=== PATIENT | male | born 1995 | race Caucasian/White ===

== ENCOUNTER 2022-08-03 14:30 | Inpatient (IN) | payer OTHER ==
[2022-08-03 14:51] VITALS: BMI 29.0
[2022-08-03] MEDS ORDERED: MAG HYDROX/AL HYDROX/SIMETH 30 ML UNIT-DOSE CUP PO PRN (17:32)
[2022-08-03] MEDS ORDERED: MAGNESIUM HYDROX 2400MG/30ML ORAL SUSPENSION 30 ML CUP PO PRN (17:32)
[2022-08-03] MEDS ORDERED: NALOXONE HCL 0.4 MG/ML VIAL IM PRN (17:32)
[2022-08-03] MEDS ORDERED: BENZOCAINE/MENTHOL (CHLORASEPTIC ) LOZENGE MM PRN (17:32)
[2022-08-03] MEDS ORDERED: POLYETHYLENE GLYCOL (HEALTHYLAX) 3350 17 GM PACKET PO PRN (17:32)
[2022-08-03] MEDS ORDERED: NICOTINE POLACRILEX 2 MG GUM BUC PRN (17:32)
[2022-08-03] MEDS ORDERED: ONDANSETRON *ODT* 4 MG TABLET SL PRN (17:32)
[2022-08-03] MEDS ORDERED: BISMUTH SUBSALICYLATE 524 MG/30 ML PO PRN (17:32)
[2022-08-03] MEDS ORDERED: ACETAMINOPHEN 325 MG TABLET (FP) PO PRN (17:32)
[2022-08-03] MEDS ORDERED: P-EPHED 60MG/TRIPROLIDI 2.5MG TABLET PO PRN (17:32)
[2022-08-03] MEDS ORDERED: LOPERAMIDE HCL 2 MG CAPSULE PO PRN (17:32)
[2022-08-03] MEDS ORDERED: guaiFENesin 600 MG TABLET.ER (FP) PO PRN (17:32)
[2022-08-03] MEDS ORDERED: BENZONATATE 200 MG CAPSULE PO PRN (17:32)
[2022-08-03] MEDS ORDERED: DICYCLOMINE HCL 10 MG CAPSULE PO PRN (17:32)
[2022-08-03] MEDS ORDERED: NALOXONE HCL (KLOXXADO) 8 MG SPRAY NS PRN (17:32)
[2022-08-03] MEDS ORDERED: IBUPROFEN 400 MG TABLET (FP) PO PRN (17:32)
[2022-08-03] MEDS ORDERED: IBUPROFEN 600 MG TABLET (FP) PO PRN (17:32)
[2022-08-03] MEDS: hydrOXYzine PAMOATE 25 MG CAPSULE (FP) PO PRN (22:24)
[2022-08-03] MEDS: MELATONIN 5 MG TABLETS PO PRN (22:24)
[2022-08-03] MEDS: THIAMINE HCL 100 MG TABLET (FP) PO SCH (22:24)
[2022-08-04] MEDS ORDERED: diazePAM 5 MG TABLET PO PRN (09:27)
[2022-08-04] MEDS: PRENATAL VITAMINS W/ FOLIC ACID TABLET (FP) PO SCH (10:32)
[2022-08-04] MEDS: diazePAM 5 MG TABLET PO SCH ×3 (10:34→22:26)
[2022-08-04] MEDS: hydrOXYzine PAMOATE 25 MG CAPSULE (FP) PO PRN (17:28)
[2022-08-04] MEDS: MELATONIN 5 MG TABLETS PO PRN (22:26)
[2022-08-04] MEDS: THIAMINE HCL 100 MG TABLET (FP) PO SCH (22:26)
[2022-08-05] MEDS: diazePAM 5 MG TABLET PO SCH ×4 (05:25→22:17)
[2022-08-05 10:01] LABS: POTASSIUM 3.9 mmol/L (3.5-5.1)
[2022-08-05 10:03] LABS: HEMATOCRIT 44.5 % (35.4-49); HEMOGLOBIN 15.8 GM/dL (11.7-16.9); MCH 32.6 pg (25.7-33.7); MCHC 35.5 g/dl (32.0-35.9); MEAN CELL VOLUME 91.9 fl (80-96); MEAN PLT VOLUME 9.2 fl (7.5-11.1); PLATELET COUNT 234 10^3/uL (134-434); RBC 4.85 M/mm3 (4.00-5.60); RDW 12.9 % (11.9-15.9); WHITE BLOOD COUNT 5.8 K/mm3 (4.0-10.0)
[2022-08-05 10:26] LABS: CALCIUM 9.3 mg/dL (8.5-10.1)
[2022-08-05 10:27] LABS: ALBUMIN 3.5 g/dl (3.4-5.0)
[2022-08-05 10:30] LABS: CREATININE 0.8 mg/dL (0.55-1.3)
[2022-08-05] MEDS: hydrOXYzine PAMOATE 25 MG CAPSULE (FP) PO PRN (10:31)
[2022-08-05] MEDS: METHOCARBAMOL 500 MG TABLET PO PRN (10:31)
[2022-08-05] MEDS: PRENATAL VITAMINS W/ FOLIC ACID TABLET (FP) PO SCH (10:31)
[2022-08-05 10:32] LABS: BILIRUBIN,TOTAL 0.5 mg/dL (0.2-1); TOT PROT 7.2 g/dl (6.4-8.2)
[2022-08-05] MEDS: THIAMINE HCL 100 MG TABLET (FP) PO SCH (22:17)
[2022-08-05] MEDS: MELATONIN 5 MG TABLETS PO PRN (22:17)
[2022-08-06] MEDS: diazePAM 5 MG TABLET PO SCH ×3 (05:49→22:08)
[2022-08-06] MEDS: PRENATAL VITAMINS W/ FOLIC ACID TABLET (FP) PO SCH (10:19)
[2022-08-06] MEDS: METHOCARBAMOL 500 MG TABLET PO PRN (10:19)
[2022-08-06] MEDS: hydrOXYzine PAMOATE 25 MG CAPSULE (FP) PO PRN (10:19)
[2022-08-06] MEDS: THIAMINE HCL 100 MG TABLET (FP) PO SCH (22:08)
[2022-08-06] MEDS: MELATONIN 5 MG TABLETS PO PRN (22:08)
[2022-08-07] MEDS: diazePAM 5 MG TABLET PO SCH ×2 (05:52→17:27)
[2022-08-07] MEDS: METHOCARBAMOL 500 MG TABLET PO PRN (10:28)
[2022-08-07] MEDS: hydrOXYzine PAMOATE 25 MG CAPSULE (FP) PO PRN (10:28)
[2022-08-07] MEDS: PRENATAL VITAMINS W/ FOLIC ACID TABLET (FP) PO SCH (10:28)
[2022-08-07 17:18] VITALS: RESP 18
[2022-08-07] MEDS: MELATONIN 5 MG TABLETS PO PRN (22:22)
[2022-08-07] MEDS: THIAMINE HCL 100 MG TABLET (FP) PO SCH (22:22)
[2022-08-08] MEDS ORDERED: diazePAM 5 MG TABLET PO ONE (06:00)
[2022-08-08] MEDS: PRENATAL VITAMINS W/ FOLIC ACID TABLET (FP) PO SCH (10:13)
[2022-08-08 17:07] VITALS: BP 123/77; PULSE 90; TEMP 97.7
== END 2022-08-08 18:20 | disposition other institution (70) | DRG 774 ==
LOC: YASAS 14:30 → Y6N 18:42 → UNDOADMIN 18:42 → Y6N 08-08 01:45
PROVIDERS: ADMIT Allergy & Immunology; ATTEND Surgery
PROC: HZ2ZZZZ Detoxification Services for Substance Abuse Treatment (ICD-10-PCS; principal; 2022-08-03)
DX: F10.20 Alcohol dependence, uncomplicated (principal); F14.20 Cocaine dependence, uncomplicated; F13.20 Sedative, hypnotic or anxiolytic dependence, uncomplicated; F12.20 Cannabis dependence, uncomplicated; F17.290 Nicotine dependence, other tobacco product, uncomplicated; F19.280 Other psychoactive substance dependence with psychoactive substance-induced anxiety disorder; F19.282 Other psychoactive substance dependence with psychoactive substance-induced sleep disorder; F33.1 Major depressive disorder, recurrent, moderate; R76.11 Nonspecific reaction to tuberculin skin test without active tuberculosis
CPT/HCPCS: 36415; 80053; 85027; 86780; C9803-CS; Q0162; U0003; U0005

== ENCOUNTER 2022-08-08 18:38 | Inpatient (IN) | payer OTHER ==
[~2022-08-08 18:38] MED LIST: ACETAMINOPHEN 325 MG TABLET (FP) PO PRN; AMMONIUM LACTATE 12% LOTION 225 GM BOTTLE TP PRN; BENZOCAINE/MENTHOL (CHLORASEPTIC ) LOZENGE MM PRN; BENZONATATE 200 MG CAPSULE PO PRN; COLLOIDAL OATMEAL 1 BAR EACH TP PRN; IBUPROFEN 400 MG TABLET (FP) PO PRN; IBUPROFEN 600 MG TABLET (FP) PO PRN; LOPERAMIDE HCL 2 MG CAPSULE PO PRN; MAG HYDROX/AL HYDROX/SIMETH 30 ML UNIT-DOSE CUP PO PRN; MAGNESIUM HYDROX 2400MG/30ML ORAL SUSPENSION 30 ML CUP PO PRN; NICOTINE POLACRILEX 2 MG GUM BUC PRN; POLYETHYLENE GLYCOL (HEALTHYLAX) 3350 17 GM PACKET PO PRN; guaiFENesin 600 MG TABLET.ER (FP) PO PRN
[2022-08-08] MEDS: METHOCARBAMOL 500 MG TABLET PO PRN (21:20)
[2022-08-08] MEDS: MELATONIN 5 MG TABLETS PO SCH (21:20)
[2022-08-08] MEDS: hydrOXYzine PAMOATE 25 MG CAPSULE (FP) PO PRN (21:20)
[2022-08-08] MEDS: THIAMINE HCL 100 MG TABLET (FP) PO SCH (21:21)
[2022-08-09] MEDS: PRENATAL VITAMINS W/ FOLIC ACID TABLET (FP) PO SCH (09:52)
[2022-08-09] MEDS: busPIRone HCL 5 MG TABLET PO SCH ×2 (13:34→21:04)
[2022-08-09] MEDS: THIAMINE HCL 100 MG TABLET (FP) PO SCH (21:04)
[2022-08-09] MEDS: MELATONIN 5 MG TABLETS PO SCH (21:04)
[2022-08-09] MEDS: hydrOXYzine PAMOATE 25 MG CAPSULE (FP) PO PRN (21:05)
[2022-08-09] MEDS: METHOCARBAMOL 500 MG TABLET PO PRN (21:05)
[2022-08-10] MEDS: busPIRone HCL 5 MG TABLET PO SCH ×3 (06:19→21:06)
[2022-08-10] MEDS: PRENATAL VITAMINS W/ FOLIC ACID TABLET (FP) PO SCH (09:47)
[2022-08-10] MEDS: hydrOXYzine PAMOATE 25 MG CAPSULE (FP) PO PRN (21:05)
[2022-08-10] MEDS: MELATONIN 5 MG TABLETS PO SCH (21:05)
[2022-08-10] MEDS: THIAMINE HCL 100 MG TABLET (FP) PO SCH (21:05)
[2022-08-10] MEDS: METHOCARBAMOL 500 MG TABLET PO PRN (21:06)
[2022-08-11] MEDS: busPIRone HCL 5 MG TABLET PO SCH ×3 (06:14→21:13)
[2022-08-11] MEDS: PRENATAL VITAMINS W/ FOLIC ACID TABLET (FP) PO SCH (09:44)
[2022-08-11] MEDS: METHOCARBAMOL 500 MG TABLET PO PRN (21:13)
[2022-08-11] MEDS: hydrOXYzine PAMOATE 25 MG CAPSULE (FP) PO PRN (21:13)
[2022-08-11] MEDS: MELATONIN 5 MG TABLETS PO SCH (21:13)
[2022-08-11] MEDS: THIAMINE HCL 100 MG TABLET (FP) PO SCH (21:13)
[2022-08-12] MEDS: busPIRone HCL 5 MG TABLET PO SCH ×3 (06:28→21:09)
[2022-08-12] MEDS: PRENATAL VITAMINS W/ FOLIC ACID TABLET (FP) PO SCH (09:20)
[2022-08-12] MEDS: THIAMINE HCL 100 MG TABLET (FP) PO SCH (21:06)
[2022-08-12] MEDS: METHOCARBAMOL 500 MG TABLET PO PRN (21:06)
[2022-08-12] MEDS: hydrOXYzine PAMOATE 25 MG CAPSULE (FP) PO PRN (21:06)
[2022-08-12] MEDS: MELATONIN 5 MG TABLETS PO SCH (21:07)
[2022-08-13] MEDS: busPIRone HCL 5 MG TABLET PO SCH ×3 (06:16→21:24)
[2022-08-13] MEDS: PRENATAL VITAMINS W/ FOLIC ACID TABLET (FP) PO SCH (09:20)
[2022-08-13] MEDS: THIAMINE HCL 100 MG TABLET (FP) PO SCH (21:24)
[2022-08-13] MEDS: METHOCARBAMOL 500 MG TABLET PO PRN (21:24)
[2022-08-13] MEDS: MELATONIN 5 MG TABLETS PO SCH (21:24)
[2022-08-13] MEDS: hydrOXYzine PAMOATE 25 MG CAPSULE (FP) PO PRN (21:24)
[2022-08-14] MEDS: busPIRone HCL 5 MG TABLET PO SCH ×3 (06:05→21:05)
[2022-08-14] MEDS: PRENATAL VITAMINS W/ FOLIC ACID TABLET (FP) PO SCH (09:52)
[2022-08-14] MEDS: MELATONIN 5 MG TABLETS PO SCH (21:05)
[2022-08-14] MEDS: THIAMINE HCL 100 MG TABLET (FP) PO SCH (21:05)
[2022-08-15] MEDS: busPIRone HCL 5 MG TABLET PO SCH ×3 (06:22→23:02)
[2022-08-15] MEDS: PRENATAL VITAMINS W/ FOLIC ACID TABLET (FP) PO SCH (09:29)
[2022-08-15] MEDS: THIAMINE HCL 100 MG TABLET (FP) PO SCH (23:02)
[2022-08-15] MEDS: hydrOXYzine PAMOATE 50 MG CAPSULE (FP) PO PRN (23:02)
[2022-08-15] MEDS: MIRTAZAPINE 15 MG TABLET (FP) PO SCH (23:02)
[2022-08-16] MEDS: busPIRone HCL 5 MG TABLET PO SCH ×3 (06:14→21:21)
[2022-08-16] MEDS: PRENATAL VITAMINS W/ FOLIC ACID TABLET (FP) PO SCH (09:53)
[2022-08-16] MEDS: MIRTAZAPINE 15 MG TABLET (FP) PO SCH (21:21)
[2022-08-16] MEDS: THIAMINE HCL 100 MG TABLET (FP) PO SCH (21:21)
[2022-08-16] MEDS: hydrOXYzine PAMOATE 50 MG CAPSULE (FP) PO PRN (21:21)
[2022-08-17] MEDS: busPIRone HCL 5 MG TABLET PO SCH ×3 (06:05→21:15)
[2022-08-17] MEDS: PRENATAL VITAMINS W/ FOLIC ACID TABLET (FP) PO SCH (09:19)
[2022-08-17] MEDS: THIAMINE HCL 100 MG TABLET (FP) PO SCH (21:15)
[2022-08-17] MEDS: hydrOXYzine PAMOATE 50 MG CAPSULE (FP) PO PRN (21:15)
[2022-08-17] MEDS: MIRTAZAPINE 15 MG TABLET (FP) PO SCH (21:15)
[2022-08-18] MEDS: busPIRone HCL 5 MG TABLET PO SCH ×3 (06:47→21:24)
[2022-08-18] MEDS: PRENATAL VITAMINS W/ FOLIC ACID TABLET (FP) PO SCH (09:40)
[2022-08-18] MEDS: THIAMINE HCL 100 MG TABLET (FP) PO SCH (21:24)
[2022-08-18] MEDS: hydrOXYzine PAMOATE 50 MG CAPSULE (FP) PO PRN (21:24)
[2022-08-18] MEDS: MIRTAZAPINE 15 MG TABLET (FP) PO SCH (21:25)
[2022-08-19] MEDS: busPIRone HCL 5 MG TABLET PO SCH ×3 (06:40→21:15)
[2022-08-19] MEDS: PRENATAL VITAMINS W/ FOLIC ACID TABLET (FP) PO SCH (09:54)
[2022-08-19] MEDS: THIAMINE HCL 100 MG TABLET (FP) PO SCH (21:15)
[2022-08-19] MEDS: MIRTAZAPINE 15 MG TABLET (FP) PO SCH (21:15)
[2022-08-19] MEDS: hydrOXYzine PAMOATE 50 MG CAPSULE (FP) PO PRN (21:15)
[2022-08-20] MEDS: busPIRone HCL 5 MG TABLET PO SCH ×3 (06:23→21:44)
[2022-08-20] MEDS: PRENATAL VITAMINS W/ FOLIC ACID TABLET (FP) PO SCH (09:42)
[2022-08-20] MEDS: THIAMINE HCL 100 MG TABLET (FP) PO SCH (21:44)
[2022-08-20] MEDS: MIRTAZAPINE 15 MG TABLET (FP) PO SCH (21:44)
[2022-08-20] MEDS: hydrOXYzine PAMOATE 50 MG CAPSULE (FP) PO PRN (21:44)
[2022-08-21] MEDS: busPIRone HCL 5 MG TABLET PO SCH ×3 (06:12→21:04)
[2022-08-21] MEDS: PRENATAL VITAMINS W/ FOLIC ACID TABLET (FP) PO SCH (09:43)
[2022-08-21] MEDS: THIAMINE HCL 100 MG TABLET (FP) PO SCH (21:04)
[2022-08-21] MEDS: hydrOXYzine PAMOATE 50 MG CAPSULE (FP) PO PRN (21:04)
[2022-08-21] MEDS: MIRTAZAPINE 15 MG TABLET (FP) PO SCH (21:04)
[2022-08-22] MEDS: busPIRone HCL 5 MG TABLET PO SCH (06:08)
[2022-08-22 07:04] VITALS: BP 102/71; PULSE 75; RESP 18; TEMP 97.7
[2022-08-22] MEDS: PRENATAL VITAMINS W/ FOLIC ACID TABLET (FP) PO SCH (09:05)
== END 2022-08-22 09:10 | disposition home or self-care (01) | DRG 772 ==
LOC: YASAS 18:38 → Y3E 18:40
PROVIDERS: ADMIT Allergy & Immunology; ATTEND Psychiatry & Neurology Pain Medicine
PROC: HZ42ZZZ Group Counseling for Substance Abuse Treatment, Cognitive-Behavioral (ICD-10-PCS; principal; 2022-08-08)
DX: F10.20 Alcohol dependence, uncomplicated (principal); F14.20 Cocaine dependence, uncomplicated; F13.20 Sedative, hypnotic or anxiolytic dependence, uncomplicated; F12.20 Cannabis dependence, uncomplicated; F17.290 Nicotine dependence, other tobacco product, uncomplicated; F19.282 Other psychoactive substance dependence with psychoactive substance-induced sleep disorder; F19.280 Other psychoactive substance dependence with psychoactive substance-induced anxiety disorder; F19.24 Other psychoactive substance dependence with psychoactive substance-induced mood disorder; F33.1 Major depressive disorder, recurrent, moderate
CPT/HCPCS: 71046-TC-FY

== ENCOUNTER 2022-12-07 20:09 | Inpatient (IN) | payer OTHER ==
[2022-12-07 21:38] VITALS: BMI 32.1
[2022-12-07] MEDS ORDERED: chlordiazePOXIDE HCL 25 MG CAPSULE PO PRN (22:18)
[2022-12-07] MEDS ORDERED: LOPERAMIDE HCL 2 MG CAPSULE PO PRN (22:25)
[2022-12-07] MEDS ORDERED: NICOTINE POLACRILEX 2 MG GUM BUC PRN (22:25)
[2022-12-07] MEDS ORDERED: BISMUTH SUBSALICYLATE 524 MG/30 ML PO PRN (22:25)
[2022-12-07] MEDS ORDERED: IBUPROFEN 400 MG TABLET (FP) PO PRN (22:25)
[2022-12-07] MEDS ORDERED: POLYETHYLENE GLYCOL (HEALTHYLAX) 3350 17 GM PACKET PO PRN (22:25)
[2022-12-07] MEDS ORDERED: ONDANSETRON *ODT* 4 MG TABLET SL PRN (22:25)
[2022-12-07] MEDS ORDERED: BENZONATATE 200 MG CAPSULE PO PRN (22:25)
[2022-12-07] MEDS ORDERED: P-EPHED 60MG/TRIPROLIDI 2.5MG TABLET PO PRN (22:25)
[2022-12-07] MEDS ORDERED: METHOCARBAMOL 500 MG TABLET PO PRN (22:25)
[2022-12-07] MEDS ORDERED: MAGNESIUM HYDROX 2400MG/30ML ORAL SUSPENSION 30 ML CUP PO PRN (22:25)
[2022-12-07] MEDS ORDERED: DICYCLOMINE HCL 10 MG CAPSULE PO PRN (22:25)
[2022-12-07] MEDS ORDERED: MAG HYDROX/AL HYDROX/SIMETH 30 ML UNIT-DOSE CUP PO PRN (22:25)
[2022-12-07] MEDS ORDERED: guaiFENesin 600 MG TABLET.ER (FP) PO PRN (22:25)
[2022-12-07] MEDS ORDERED: ACETAMINOPHEN 325 MG TABLET (FP) PO PRN (22:25)
[2022-12-07] MEDS ORDERED: BENZOCAINE/MENTHOL (CHLORASEPTIC ) LOZENGE MM PRN (22:25)
[2022-12-07] MEDS ORDERED: levETIRAcetam 500 MG TABLET (FP) PO ONE (22:43)
[2022-12-07] MEDS ORDERED: chlordiazePOXIDE HCL 25 MG CAPSULE ONE (22:43)
[2022-12-07] MEDS: chlordiazePOXIDE HCL 25 MG CAPSULE PO SCH (22:58)
[2022-12-07] MEDS: levETIRAcetam 500 MG TABLET (FP) PO SCH (22:58)
[2022-12-08] MEDS: chlordiazePOXIDE HCL 25 MG CAPSULE PO SCH ×4 (05:37→22:21)
[2022-12-08] MEDS: hydrOXYzine PAMOATE 25 MG CAPSULE (FP) PO PRN (10:39)
[2022-12-08 10:41] LABS: POTASSIUM 3.5 mmol/L (3.5-5.1)
[2022-12-08] MEDS: levETIRAcetam 500 MG TABLET (FP) PO SCH ×2 (10:41→22:20)
[2022-12-08] MEDS: PRENATAL VITAMINS W/ FOLIC ACID TABLET (FP) PO SCH (10:41)
[2022-12-08 10:47] LABS: HEMATOCRIT 41.2 % (35.4-49); MCH 31.5 pg (25.7-33.7); MEAN CELL VOLUME 92.8 fl (80-96); MEAN PLT VOLUME 8.5 fl (7.5-11.1); PLATELET COUNT 260 10^3/uL (134-434); RBC 4.44 M/mm3 (4.00-5.60); RDW 13.3 % (11.9-15.9); WHITE BLOOD COUNT 3.9 K/mm3 (4.0-10.0)
[2022-12-08 10:50] LABS: CALCIUM 8.2 mg/dL (8.5-10.1)
[2022-12-08 10:51] LABS: ALBUMIN 3.6 g/dl (3.4-5.0)
[2022-12-08 10:54] LABS: CREATININE 0.9 mg/dL (0.55-1.3)
[2022-12-08 10:55] LABS: BILIRUBIN,TOTAL 0.4 mg/dL (0.2-1)
[2022-12-08] MEDS: MIRTAZAPINE 15 MG TABLET (FP) PO SCH (22:20)
[2022-12-08] MEDS: THIAMINE HCL 100 MG TABLET (FP) PO SCH (22:20)
[2022-12-08] MEDS: MELATONIN 5 MG TABLETS PO SCH (22:21)
[2022-12-08] MEDS: busPIRone HCL 10 MG TABLET (FP) PO SCH (22:21)
[2022-12-09] MEDS: chlordiazePOXIDE HCL 25 MG CAPSULE PO SCH ×4 (05:23→22:07)
[2022-12-09] MEDS: busPIRone HCL 10 MG TABLET (FP) PO SCH ×3 (05:23→22:08)
[2022-12-09] MEDS: hydrOXYzine PAMOATE 25 MG CAPSULE (FP) PO PRN ×2 (05:24→13:21)
[2022-12-09] MEDS: levETIRAcetam 500 MG TABLET (FP) PO SCH ×2 (10:11→22:07)
[2022-12-09] MEDS: PRENATAL VITAMINS W/ FOLIC ACID TABLET (FP) PO SCH (10:11)
[2022-12-09] MEDS: THIAMINE HCL 100 MG TABLET (FP) PO SCH (22:07)
[2022-12-09] MEDS: MIRTAZAPINE 15 MG TABLET (FP) PO SCH (22:07)
[2022-12-09] MEDS: MELATONIN 5 MG TABLETS PO SCH (22:08)
[2022-12-10] MEDS ORDERED: chlordiazePOXIDE HCL 10 MG CAPSULE PO PRN
[2022-12-10] MEDS: chlordiazePOXIDE HCL 10 MG CAPSULE PO SCH ×4 (05:26→22:12)
[2022-12-10] MEDS: busPIRone HCL 10 MG TABLET (FP) PO SCH ×3 (05:27→21:52)
[2022-12-10] MEDS: hydrOXYzine PAMOATE 25 MG CAPSULE (FP) PO PRN ×2 (05:28→21:53)
[2022-12-10] MEDS: IBUPROFEN 600 MG TABLET (FP) PO PRN (06:58)
[2022-12-10] MEDS: levETIRAcetam 500 MG TABLET (FP) PO SCH (10:20)
[2022-12-10] MEDS: PRENATAL VITAMINS W/ FOLIC ACID TABLET (FP) PO SCH (10:20)
[2022-12-10] MEDS: MIRTAZAPINE 15 MG TABLET (FP) PO SCH (21:52)
[2022-12-10] MEDS: THIAMINE HCL 100 MG TABLET (FP) PO SCH (21:53)
[2022-12-10] MEDS: MELATONIN 5 MG TABLETS PO SCH (21:55)
[2022-12-11] MEDS: busPIRone HCL 10 MG TABLET (FP) PO SCH ×3 (05:34→22:04)
[2022-12-11] MEDS: chlordiazePOXIDE HCL 10 MG CAPSULE PO SCH ×2 (05:34→17:38)
[2022-12-11] MEDS: hydrOXYzine PAMOATE 25 MG CAPSULE (FP) PO PRN ×2 (05:35→22:06)
[2022-12-11] MEDS: PRENATAL VITAMINS W/ FOLIC ACID TABLET (FP) PO SCH (10:17)
[2022-12-11] MEDS: IBUPROFEN 600 MG TABLET (FP) PO PRN (22:04)
[2022-12-11] MEDS: MELATONIN 5 MG TABLETS PO SCH (22:05)
[2022-12-11] MEDS: THIAMINE HCL 100 MG TABLET (FP) PO SCH (22:05)
[2022-12-11] MEDS: MIRTAZAPINE 15 MG TABLET (FP) PO SCH (22:05)
[2022-12-12] MEDS ORDERED: chlordiazePOXIDE HCL 10 MG CAPSULE PO ONE (05:00)
[2022-12-12] MEDS: busPIRone HCL 10 MG TABLET (FP) PO SCH (05:37)
[2022-12-12] MEDS: hydrOXYzine PAMOATE 25 MG CAPSULE (FP) PO PRN (05:38)
[2022-12-12 06:14] VITALS: TEMP 97.7
[2022-12-12 08:59] VITALS: BP 109/62; PULSE 65; RESP 16
== END 2022-12-12 09:45 | disposition home or self-care (01) | DRG 774 ==
LOC: YASAS 20:09 → Y3N 23:01
PROVIDERS: ADMIT Allergy & Immunology; ATTEND Surgery
PROC: HZ2ZZZZ Detoxification Services for Substance Abuse Treatment (ICD-10-PCS; principal; 2022-12-07)
DX: F10.230 Alcohol dependence with withdrawal, uncomplicated (principal); F14.20 Cocaine dependence, uncomplicated; F12.20 Cannabis dependence, uncomplicated; F17.290 Nicotine dependence, other tobacco product, uncomplicated; F19.24 Other psychoactive substance dependence with psychoactive substance-induced mood disorder; F32.A Depression, unspecified; G47.00 Insomnia, unspecified; R73.9 Hyperglycemia, unspecified; E66.9 Obesity, unspecified; Z68.32 Body mass index [BMI] 32.0-32.9, adult; Z28.310 Unvaccinated for COVID-19; Z28.9 Immunization not carried out for unspecified reason; Z91.148 Patient's other noncompliance with medication regimen for other reason
CPT/HCPCS: 36415; 80053; 82962; 85027; 86780; 87635; Q0162